=== PATIENT | male | born 1940 | race Caucasian/White ===

== ENCOUNTER 2019-05-29 01:04 | Inpatient (IN) | payer OTHER ==
[~2019-05-29] VITALS: Ht 172.7 cm; Wt 53.5 kg
[2019-05-29] MEDS ORDERED: MAGNESIUM HYDROXIDE 30 ML UDC PO PRN (02:00)
[2019-05-29] MEDS ORDERED: ACETAMINOPHEN 325 MG TABLET PO PRN (02:00)
[2019-05-29] MEDS ORDERED: MAG HYDROX/AL HYDROX/SIMETH 30 ML UDC PO PRN (02:00)
[2019-05-29] MEDS ORDERED: DOCU-141 PO (02:25)
[2019-05-29] MEDS ORDERED: ALBU8.5H8 INH (02:25)
[2019-05-29] MEDS ORDERED: ASPI-605 PO (02:25)
[2019-05-29] MEDS ORDERED: CHOL100044 PO (02:25)
[2019-05-29] MEDS ORDERED: DONE10TA44 PO (02:25)
[2019-05-29] MEDS ORDERED: MEMA10TA PO (02:25)
[2019-05-29] MEDS ORDERED: BUDE10.2 INH (02:25)
[2019-05-29] MEDS ORDERED: INSU100V10 SQ (02:45)
--- NOTE | 2019-05-29 05:57 | NUR ---
PAGED DNP XIN YANEZ, RE: MED RECON, HE SAID, " CHECK IN AM WITH AN MD."
[2019-05-29] MEDS: BLOOD SUGAR DIAGNOSTIC 1 EACH STRIP IN SCH ×4 (07:48→21:05)
[2019-05-29 08:00] VITALS: BP 152/85
[2019-05-29 10:26] LABS: CHOLESTEROL 132 mg/dL (<200); HDL CHOLESTEROL 50 mg/dL (40-60); LDL 75 mg/dL (0-99); TRIGLYCERIDES 66 mg/dL (30-150)
[2019-05-29] MEDS: FLUTICASONE/VILANTEROL 1 EACH BLST.W.DEV IH SCH (10:52)
[2019-05-29 16:00] VITALS: BP 147/58
--- NOTE | 2019-05-29 19:39 | NUR ---
PATIENT AT THE BEDSIDE, CALM, QUIET, FEELING DEPRESSED. NO APPARENT DISTRESS NOTED.
[2019-05-29 19:45] VITALS: BP 145/76
[2019-05-29] MEDS: INSULIN GLARGINE, 100 UNIT/ML CARTRIDGE SQ SCH (21:08)
[2019-05-29] MEDS: MIRTAZAPINE 15 MG TABLET PO SCH (22:27)
[2019-05-30 06:22] LABS: BASOPHILS # (AUTO) 0.1 /CMM (0.0-0.2); BASOPHILS % (AUTO) 0.8 % (0.0-2.0); EOSINOPHILS % (AUTO) 1.9 % (0.0-6.0); HEMATOCRIT 43 % (39-51); HEMOGLOBIN 14.4 g/dL (13.5-17.5); LYMPHOCYTES # (AUTO) 2.5 /CMM (0.8-4.8); LYMPHOCYTES % (AUTO) 37.7 % (20.0-44.0); MEAN CORPUSCULAR HGB CONC 34 g/dl (31.0-36.0); MEAN CORPUSCULAR VOLUME 100 fL (80-96); MONOCYTES # (AUTO) 0.7 /CMM (0.1-1.30); NEUTROPHILS # (AUTO) 3.3 /CMM (1.8-8.9); NEUTROPHILS % (AUTO) 49.6 % (43.0-81.0); PLATELET COUNT (AUTO) 184 /CMM (150-450); RED BLOOD CELL COUNT(AUTO) 4.28 MIL/uL (4.5-6.0); WHITE BLOOD COUNT (AUTO) 6.7 K/uL (4.3-11.0)
[2019-05-30 06:45] LABS: ALANINE AMINOTRANSFERASE 21 U/L (12-78); ALBUMIN 2.9 g/dL (3.4-5.0); ALKALINE PHOSPHATASE 92 U/L (46-116); ASPARTATE AMINOTRANSFERASE 21 U/L (15-37); BILIRUBIN,TOTAL 0.6 mg/dL (0.2-1.0); CALCIUM, SERUM 8.4 mg/dL (8.5-10.1); CARBON DIOXIDE 30 mmol/L (21-32); CHLORIDE 107 mmol/L (98-107); CREATININE 1.4 mg/dL (0.6-1.3); GLUCOSE 80 mg/dL (74-106); POTASSIUM 3.4 mmol/L (3.5-5.1); SODIUM SERUM 144 mmol/L (136-145); TOTAL PROTEIN, SERUM 5.9 g/dL (6.4-8.2); UREA NITROGEN, BLOOD 11 mg/dL (7-18)
[2019-05-30 06:46] LABS: THYROID STIMULATING HORMONE 3.063 uIU/mL (0.358-3.74)
[2019-05-30 06:47] LABS: CHOLESTEROL 119 mg/dL (<200); HDL CHOLESTEROL 48 mg/dL (40-60); LDL 64 mg/dL (0-99); TRIGLYCERIDES 58 mg/dL (30-150)
[2019-05-30] MEDS: BLOOD SUGAR DIAGNOSTIC 1 EACH STRIP IN SCH ×4 (07:49→21:52)
--- NOTE | 2019-05-30 07:54 | NUR ---
RN NOTE: 0730 BS 74 MG/DL; NO COVERAGE NEEDED.
[2019-05-30 08:00] VITALS: BP 155/80
[2019-05-30] MEDS: ASPIRIN EC 81 MG TABLET.DR PO SCH (08:42)
[2019-05-30] MEDS: CHOLECALCIFEROL 1,000 UNIT TABLET (VIT D3) PO SCH (08:42)
[2019-05-30] MEDS: DOCUSATE SODIUM 100 MG CAPSULE PO SCH (08:42)
[2019-05-30] MEDS ORDERED: POTASSIUM CHLORIDE 20 MEQ TAB.PRT.SR PO ONE (09:30)
[2019-05-30 16:26] VITALS: BP 125/64
[2019-05-30 20:16] VITALS: BP 161/76
[2019-05-30] MEDS: MIRTAZAPINE 15 MG TABLET PO SCH (21:34)
[2019-05-30] MEDS: INSULIN GLARGINE, 100 UNIT/ML CARTRIDGE SQ SCH (22:00)
--- NOTE | 2019-05-30 22:34 | NUR ---
gps rn notes: patient in the room, accucheck 68mg/dl- no insulin given at this time. provided patient with snacks and juice. lantus 5 units not given, patient las low blood sugar. will monitor patient.
[2019-05-31 00:45] VITALS: BP 150/82
[2019-05-31 07:39] LABS: CALCIUM, SERUM 8.9 mg/dL (8.5-10.1); CARBON DIOXIDE 29 mmol/L (21-32); CHLORIDE 107 mmol/L (98-107); CREATININE 1.4 mg/dL (0.6-1.3); GLUCOSE 86 mg/dL (74-106); POTASSIUM 3.8 mmol/L (3.5-5.1); SODIUM SERUM 142 mmol/L (136-145); UREA NITROGEN, BLOOD 14 mg/dL (7-18)
[2019-05-31 08:00] VITALS: BP 161/81
[2019-05-31] MEDS: ASPIRIN EC 81 MG TABLET.DR PO SCH (08:25)
[2019-05-31] MEDS: BLOOD SUGAR DIAGNOSTIC 1 EACH STRIP IN SCH ×4 (08:25→21:33)
[2019-05-31] MEDS: CHOLECALCIFEROL 1,000 UNIT TABLET (VIT D3) PO SCH (08:25)
[2019-05-31] MEDS: DOCUSATE SODIUM 100 MG CAPSULE PO SCH (08:25)
--- NOTE | 2019-05-31 08:43 | NUR ---
RN NOTE: PATIENT'S 0730 BLOOD SUGAR 65 MG/DL; NO COVERAGE GIVE. NO SYMPTOMS NOTED FOR HYPOGLYCEMIA. ORANGE JUICE GIVEN PRIOR TO BREAKFAST.
--- NOTE | 2019-05-31 09:22 | NUR ---
UR NOTE: KEMAL received a call from [facility] Lab Intern Татьяна [phone] Auth# [id number] who requested a clinical update on pt. KEMAL informed her that per service coordinator pt has been approved 4 days and was admitted on 05/29/19. Татьяна stated that in her records it showed that pt was admitted on 05/28/19 and that is why she was calling for an update. KEMAL provided Татьяна with a clinical review. Татьяна requested a mental status exam and also requested pts medications be increased for additional days approved. KEMAL informed her that she would be contacting psychiatrist to inquire about treatment plan and will return her call.
[2019-05-31] MEDS: FLUTICASONE/VILANTEROL 1 EACH BLST.W.DEV IH SCH (09:52)
--- NOTE | 2019-05-31 10:00 | NUR ---
RN NOTE: URINE COLLECTED FOR UA
[2019-05-31 11:54] LABS: CREATININE, URINE 122.4 MG/DL (30.0-125.0)
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
--- NOTE | 2019-05-31 13:02 | NUR ---
RN NOTE: 0730 BS 65 MG/DL. 4 OZ OJ GIVEN WITH BREAKFAST. 1130 BS 61 MG/DL. 8 OZ OJ, APPLE SAUCE WITH 2 PACKETS OF SUGAR WAS GIVEN BEFORE LUNCH. 1230 BS 104 MG/DL. DRYWALL STRIPPER HELPER WAS INFORMED OF PATIENT'S BS LEVELS AND WILL START GLUCERNA FOR THE PATIENT FOR BREAKFAST, LUNCH AND DINNER.
[2019-05-31] MEDS: ALBUTEROL FS 2.5 MG/3 ML VIAL.NEB NEB PRN (13:05)
--- NOTE | 2019-05-31 13:25 | NUR ---
UR NOTE: KEMAL contacted N Kinesiotherapist Татьяна [phone] Auth# [id number] and left voicemail informing her Dr. Abraham will reevaluate pt today and increase Remeron. KEMAL stated that she would call tomorrow once psychiatrist has made medication adjustments. KEMAL has requested for additional days at pt is currently stating he is feeling suicidal and is depressed.
[2019-05-31 13:27] LABS: APPEARANCE,URINE Slightly Cloudy (CLEAR); BILIRUBIN,URINE Negative (NEGATIVE); BLOOD, URINE Trace-intact Ery/uL (NEGATIVE); COLOR,URINE Yellow (YELLOW); KETONES,URINE Negative (NEGATIVE); LEUKOCYTE ESTERASE ,URINE Negative (NEGATIVE); NITRITE, URINE Negative (NEGATIVE); PROTEIN,URINE Negative (NEGATIVE); UGLUCOSE Negative (NEGATIVE); UROBILINOGEN,URINE 0.2 EU/dL (0.2)
[2019-05-31 13:37] LABS: BACTERIA,URINE None seen /HPF (None Seen); SQUAMOUS EPITHELIAL CELL,UR Few /HPF (None Seen); WBC,URINE 0-3 /HPF (0-3)
--- NOTE | 2019-05-31 14:40 | NUR ---
SW contacted pts son Osito [phone] and left voicemail for callback.
[2019-05-31 16:00] VITALS: BP 113/60
--- NOTE | 2019-05-31 16:00 | NUR ---
INITIAL DISCHARGE PLAN: Per pt he states he and his daughter are homeless and that he currently lives in the hospital and does not have a home. Pt states he has a monthly income is $4/5 thousand dollars. KEMAL attempted to contact pts son Osito [phone] and left a voicemail for callback. KEMAL will collaborate with and plan for a safe and proper discharge.
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
[2019-05-31] MEDS: LORAZEPAM 0.5 MG TABLET PO PRN (17:19)
[2019-05-31] MEDS: GLUCERNA SHAKE 237 ML CAN PO SCH (17:39)
--- NOTE | 2019-05-31 18:38 | NUR ---
RN NOTE: PATIENT HAS VERBALIZED INTERMITTENT SI WITH NO SPECIFIC PLAN. CN INFORMED. ATIVAN 1MG PO PRN GIVEN. WILL CONTINUE TO MONITOR Q15 MINUTES FOR SAFETY AND BEHAVIOR.
[2019-05-31 20:00] VITALS: BP 131/70
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
[2019-05-31] MEDS: MIRTAZAPINE 15 MG TABLET PO SCH (21:32)
[2019-05-31] MEDS: INSULIN GLARGINE, 100 UNIT/ML CARTRIDGE SQ SCH (21:34)
[2019-06-01] MEDS: TEMAZEPAM 7.5 MG CAPSULE PO PRN (00:47)
[2019-06-01] MEDS: BLOOD SUGAR DIAGNOSTIC 1 EACH STRIP IN SCH ×4 (07:48→21:15)
[2019-06-01 08:00] VITALS: BP 137/82
[2019-06-01] MEDS: GLUCERNA SHAKE 237 ML CAN PO SCH ×3 (08:29→17:15)
[2019-06-01] MEDS: CHOLECALCIFEROL 1,000 UNIT TABLET (VIT D3) PO SCH (08:29)
[2019-06-01] MEDS: FLUTICASONE/VILANTEROL 1 EACH BLST.W.DEV IH SCH (08:29)
[2019-06-01] MEDS: DOCUSATE SODIUM 100 MG CAPSULE PO SCH (08:29)
[2019-06-01] MEDS: ASPIRIN EC 81 MG TABLET.DR PO SCH (08:29)
--- NOTE | 2019-06-01 12:07 | NUR ---
UR NOTE: KEMAL contacted N Crop Grain Or Livestock Farm Manager Татьяна [phone] Auth# [id number] and left clinical update via voicemail.
--- NOTE | 2019-06-01 12:09 | NUR ---
SW contacted pts daughter Ryann [phone] to discuss discharge plan and left a voicemail for callback.
--- NOTE | 2019-06-01 13:02 | NUR ---
UR NOTE: KEMAL received a call from [facility] Assembly Line Worker Татьяна [phone] requesting peer to peer review with Psychiatrist Dr. Abraham. KEMAL contacted [facility] [phone] Abraham and left a voicemail scheduling the peer to peer review for Friday06/02/19 at 2:00pm. Per Татьяна, pt has been authorized today 06/01/19.
--- NOTE | 2019-06-01 13:12 | NUR ---
KEMAL contacted Anni-pts daughter in law (Osito's ) [phone] and left a voicemail requesting call back from pts daughter Ryann to discuss pts discharge plan.
--- NOTE | 2019-06-01 13:31 | NUR ---
SW received a call from pts daughter Ryann [phone]/ [phone] confirming pt has a home to return to. Per Ryann she stated pt lives in [address] [address] and is able to return but was unable to provide SW with the phone number of the home. Per daughter she stated that up until 3 days ago she was homeless and has not means of transporting pt back to his home. Ryann asked SW to arrange transportation with pts daughter in law Anni.
--- NOTE | 2019-06-01 15:49 | NUR ---
GROUP NOTE: SW attempted to engage pt in group therapy on this present day discussing poor life choices and how they have affected pts life. However, pt refused to participate saying he was def.
[2019-06-01 16:00] VITALS: BP 142/67
--- NOTE | 2019-06-01 19:24 | NUR ---
GPS RN NOTE, RECEIVED PATIENT AWAKE AND IN BED, NO S/S OR COMPLAINTS OF PAIN AT THIS TIME. PATIENT IS DISPLAYING NO S/S OF APPARENT DISTRESS AT THIS TIME. PATIENT BREATHING IS UNLABORED WITH EQUAL RISE AND FALL OF THE CHEST. PATIENT IS ALERT AND ORIENTED X 1 ON ROOM AIR WITH A SPO2 OF 95 %. PATIENT IS MED COMPLAINT, DISORGANIZED, ANXIOUS, COOPERATIVE, DEPRESSED, AND NEEDS REORIENTATION. PATIENT DENIES SUICIDE AND HOMICIDAL IDEATIONS AT THIS TIME. PATIENT ASSISTED WITH TURNING AND REPOSITIONING Q2HR AND PRN FOR COMFORT AND CIRCULATION. PATIENT HAS NO NEEDS AT THIS TIME. PATIENT EDUCATED ON THE USE OF THE CALL [place]. PATIENT BED SIDE RAILS ARE UP X 2 FOR SAFETY, BED IS LOCKED, AND LOW WILL CONTINUE TO MONITOR AND MAINTAIN SAFETY.
[2019-06-01 20:09] VITALS: BP 134/86
--- NOTE | 2019-06-01 21:15 | NUR ---
GPS RN NOTE, PERFORMED ACCU CHECK ON PATIENT WITH A BLOOD SUGAR RESULT OF 89. 2 UNITS OF LANTUS GIVE SQ RIGHT ARM. WILL CONTINUE TO MONITOR THIS PATIENT.
[2019-06-01] MEDS: risperiDONE 1 MG TABLET PO SCH (21:37)
[2019-06-01] MEDS: INSULIN GLARGINE, 100 UNIT/ML CARTRIDGE SQ SCH (21:37)
[2019-06-01] MEDS: MIRTAZAPINE 15 MG TABLET PO SCH (21:37)
[2019-06-02] MEDS ORDERED: Z GUARD REMEDY 2 OZ OINT TP PRN (06:30)
[2019-06-02 08:00] VITALS: BP 126/52
[2019-06-02] MEDS: DOCUSATE SODIUM 100 MG CAPSULE PO SCH (08:23)
[2019-06-02] MEDS: ASPIRIN EC 81 MG TABLET.DR PO SCH (08:23)
[2019-06-02] MEDS: BLOOD SUGAR DIAGNOSTIC 1 EACH STRIP IN SCH ×4 (08:23→21:22)
[2019-06-02] MEDS: CHOLECALCIFEROL 1,000 UNIT TABLET (VIT D3) PO SCH (08:24)
[2019-06-02] MEDS: risperiDONE 1 MG TABLET PO SCH ×2 (08:26→21:23)
[2019-06-02] MEDS: FLUTICASONE/VILANTEROL 1 EACH BLST.W.DEV IH SCH (08:28)
[2019-06-02] MEDS: RIVASTIGMINE TARTRATE 1.5 MG CAPSULE PO SCH ×2 (08:28→16:30)
[2019-06-02] MEDS: GLUCERNA SHAKE 237 ML CAN PO SCH ×3 (08:28→18:40)
[2019-06-02] MEDS: ALBUTEROL FS 2.5 MG/3 ML VIAL.NEB NEB PRN (12:57)
--- NOTE | 2019-06-02 15:29 | NUR ---
GROUP NOTE: SW attempted to engage pt in group therapy on this present day discussing discharge planning. However, pt is unable to participate as pt has been increasingly been acting bizarre and is now more confused and disorganized.
--- NOTE | 2019-06-02 15:49 | NUR ---
SW received a call from psychiatrist Dr. Abraham stating that [facility] has authorized 2 days and recommending pt be discharged to a board and care that is able to accommodate pts needs.
--- NOTE | 2019-06-02 15:52 | NUR ---
KEMAL contacted Ellyn daughter in law (Osito's ) [phone] and left a voicemail requesting call back
--- NOTE | 2019-06-02 15:52 | NUR ---
SW contacted pts daughter Ryann [phone] to discuss discharge plan and left a voicemail for callback.
--- NOTE | 2019-06-02 15:57 | NUR ---
KEMAL faxed pts face sheet to [facility] [employer] [facility] [employer] [facility] for placement .
[2019-06-02 16:00] VITALS: BP 110/56
[2019-06-02 20:24] VITALS: BP 131/66
[2019-06-02] MEDS: MIRTAZAPINE 15 MG TABLET PO SCH (21:22)
[2019-06-02] MEDS: INSULIN GLARGINE, 100 UNIT/ML CARTRIDGE SQ SCH (21:29)
[2019-06-02] MEDS ORDERED: POTASSIUM CHLORIDE 20 MEQ TAB.PRT.SR PO ONE (22:12)
[2019-06-03 07:29] LABS: CALCIUM, SERUM 9.2 mg/dL (8.5-10.1); CARBON DIOXIDE 26 mmol/L (21-32); CHLORIDE 108 mmol/L (98-107); CREATININE 1.2 mg/dL (0.6-1.3); GLUCOSE 86 mg/dL (74-106); MAGNESIUM 2.3 mg/dL (1.8-2.4); PHOSPHORUS 3.5 mg/dL (2.5-4.9); POTASSIUM 4.2 mmol/L (3.5-5.1); SODIUM SERUM 141 mmol/L (136-145); UREA NITROGEN, BLOOD 23 mg/dL (7-18)
[2019-06-03 07:40] LABS: BASOPHILS # (AUTO) 0.1 /CMM (0.0-0.2); BASOPHILS % (AUTO) 0.8 % (0.0-2.0); EOSINOPHILS % (AUTO) 3.4 % (0.0-6.0); HEMATOCRIT 39 % (39-51); HEMOGLOBIN 13.1 g/dL (13.5-17.5); LYMPHOCYTES # (AUTO) 1.9 /CMM (0.8-4.8); LYMPHOCYTES % (AUTO) 27.9 % (20.0-44.0); MEAN CORPUSCULAR HGB CONC 33 g/dl (31.0-36.0); MEAN CORPUSCULAR VOLUME 102 fL (80-96); MONOCYTES # (AUTO) 0.7 /CMM (0.1-1.30); MONOCYTES % (AUTO) 9.7 % (2.0-12.0); NEUTROPHILS % (AUTO) 58.2 % (43.0-81.0); PLATELET COUNT (AUTO) 160 /CMM (150-450); RED BLOOD CELL COUNT(AUTO) 3.82 MIL/uL (4.5-6.0); WHITE BLOOD COUNT (AUTO) 6.9 K/uL (4.3-11.0)
[2019-06-03 08:00] VITALS: BP 123/51
[2019-06-03] MEDS: GLUCERNA SHAKE 237 ML CAN PO SCH ×3 (08:00→17:16)
--- NOTE | 2019-06-03 08:20 | NUR ---
SW received a voicemail from pts daughter Ryann [phone] stating that pt makes $2100/month but also stated that pts money for this month is all gone as she had to pay for expenses and rent.
[2019-06-03] MEDS: CHOLECALCIFEROL 1,000 UNIT TABLET (VIT D3) PO SCH (08:27)
[2019-06-03] MEDS: RIVASTIGMINE TARTRATE 1.5 MG CAPSULE PO SCH ×2 (08:27→17:15)
[2019-06-03] MEDS: DOCUSATE SODIUM 100 MG CAPSULE PO SCH (08:27)
[2019-06-03] MEDS: risperiDONE 1 MG TABLET PO SCH ×2 (08:27→21:12)
[2019-06-03] MEDS: ASPIRIN EC 81 MG TABLET.DR PO SCH (08:27)
--- NOTE | 2019-06-03 08:27 | NUR ---
SW contacted pts daughter Ryann [phone] to discuss discharge plan and left a voicemail for callback.
[2019-06-03] MEDS: FLUTICASONE/VILANTEROL 1 EACH BLST.W.DEV IH SCH (08:28)
[2019-06-03] MEDS: BLOOD SUGAR DIAGNOSTIC 1 EACH STRIP IN SCH ×4 (08:28→21:40)
--- NOTE | 2019-06-03 08:29 | NUR ---
UR NOTE: SW received a voicemail from [facility] Grapple Operator Татьяна [phone] stating pt has been approved 3 additional days with a review due on Friday06/04/19.
--- NOTE | 2019-06-03 08:30 | NUR ---
UR NOTE: SW contacted N Lockmaker Татьяна [phone] Auth# [id number] and left voicemail informing her pt needs a higher level of care and requested assistance with placement.
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
--- NOTE | 2019-06-03 10:11 | NUR ---
KEMAL received a call from Anni-pts daughter in law (Osito's ) [phone] who stated that she and pts son Osito are willing to provide the first month rent for a board and care. Anni stated that she did not know how Ryann was managing pts finances but stated that it is best if pt is placed elsewhere. KEMAL informed her that pt will be evaluated today by a placement agency to find adequate placement for pt. Anni agreed with plan.
--- NOTE | 2019-06-03 10:31 | NUR ---
KEMAL contacted [facility], [employer] [phone] and informed her pts son an daughter in law will be assisting with paying first month rent. KEMAL also provided Ander with daughter in law Anni's contact information. Ander stated that someone will be coming on this present day to assess pt.
--- NOTE | 2019-06-03 15:48 | NUR ---
Group Note: SW attempted to engage pt in group therapy but pt is unable to participate as pt has been increasingly been acting bizarre and is now more confused and disorganized.
[2019-06-03 16:00] VITALS: BP 105/55
[2019-06-03 20:11] VITALS: BP 114/52
[2019-06-03] MEDS: LORAZEPAM 0.5 MG TABLET PO PRN (21:12)
[2019-06-03] MEDS: MIRTAZAPINE 15 MG TABLET PO SCH (21:40)
[2019-06-03] MEDS: TEMAZEPAM 7.5 MG CAPSULE PO PRN (21:40)
[2019-06-03] MEDS: INSULIN GLARGINE, 100 UNIT/ML CARTRIDGE SQ SCH (21:41)
[2019-06-04] MEDS: BLOOD SUGAR DIAGNOSTIC 1 EACH STRIP IN SCH ×4 (07:37→21:36)
[2019-06-04 08:00] VITALS: BP 114/63
[2019-06-04] MEDS: GLUCERNA SHAKE 237 ML CAN PO SCH ×3 (08:41→16:36)
[2019-06-04] MEDS: ASPIRIN EC 81 MG TABLET.DR PO SCH (08:41)
[2019-06-04] MEDS: RIVASTIGMINE TARTRATE 1.5 MG CAPSULE PO SCH ×2 (08:41→16:36)
[2019-06-04] MEDS: CHOLECALCIFEROL 1,000 UNIT TABLET (VIT D3) PO SCH (08:41)
--- NOTE | 2019-06-04 08:41 | NUR ---
UR NOTE: KEMAL contacted [facility] Piping Drafter Татьяна [phone] Auth# [id number] and left a clinical review via voicemail.
[2019-06-04] MEDS: risperiDONE 1 MG TABLET PO SCH ×2 (08:42→20:43)
[2019-06-04] MEDS: DOCUSATE SODIUM 100 MG CAPSULE PO SCH (08:43)
[2019-06-04] MEDS: FLUTICASONE/VILANTEROL 1 EACH BLST.W.DEV IH SCH (08:44)
--- NOTE | 2019-06-04 11:39 | NUR ---
SS Group Goal: Patient will attend group being held today from 10am -10:30 in the activities room and participate and/or actively listen to peers and be respectful. Intervention: SW facilitated group session with patients regarding their support system. Response: Patient was sleeping and did not attend group session. Plan: Patient will be invited to attend next high school social studies tutor group session held.
[2019-06-04 16:00] VITALS: BP 132/68
[2019-06-04] MEDS ORDERED: TEMAZEPAM 7.5 MG CAPSULE PO PRN (19:00)
[2019-06-04 20:00] VITALS: BP 119/64
--- NOTE | 2019-06-04 21:15 | NUR ---
FOUND SKIN TEAR ON LEFT FOREARM CLEANSE WITH SALINE PAT DRY AND COVER IT WITH KERLIX. WOUND CONSULT TRIGGERED. WILL CONTINUE TO MONITOR.
[2019-06-04] MEDS: INSULIN GLARGINE, 100 UNIT/ML CARTRIDGE SQ SCH (21:37)
[2019-06-04] MEDS: MIRTAZAPINE 15 MG TABLET PO SCH (21:37)
[2019-06-04] MEDS: ALBUTEROL FS 2.5 MG/3 ML VIAL.NEB NEB PRN (22:56)
[2019-06-05] MEDS: ALBUTEROL FS 2.5 MG/3 ML VIAL.NEB NEB PRN (05:11)
[2019-06-05] MEDS: BLOOD SUGAR DIAGNOSTIC 1 EACH STRIP IN SCH ×4 (07:54→21:42)
[2019-06-05 08:00] VITALS: BP 124/62
[2019-06-05] MEDS: GLUCERNA SHAKE 237 ML CAN PO SCH ×3 (08:00→16:53)
[2019-06-05] MEDS: risperiDONE 1 MG TABLET PO SCH ×3 (08:30→20:27)
[2019-06-05] MEDS: DOCUSATE SODIUM 100 MG CAPSULE PO SCH (09:00)
[2019-06-05] MEDS: RIVASTIGMINE TARTRATE 1.5 MG CAPSULE PO SCH ×2 (09:00→16:53)
[2019-06-05 11:30] VITALS: BP 96/50
--- NOTE | 2019-06-05 11:30 | NUR ---
RN Notes Found patient bathroom, sitting in the floor. Per patient refused fall. Patient state he set in the floor because of diaper removed and have a bowel movement and can not help self. Assist patient taking shower by help of POULTRY BONER's. Skin checked intact. Patient has edema bilateral lower foots, v/s taken BP- 96/50, p-112, O2-93% room air. Lungs are clear during auscultation. Patient has a denture and not feting well. administered some fluids, bs-106mg/dl. continued monitoring.
[2019-06-05] MEDS: ASPIRIN EC 81 MG TABLET.DR PO SCH (13:11)
[2019-06-05] MEDS: CHOLECALCIFEROL 1,000 UNIT TABLET (VIT D3) PO SCH (13:11)
[2019-06-05] MEDS: FLUTICASONE/VILANTEROL 1 EACH BLST.W.DEV IH SCH (13:12)
[2019-06-05 13:30] VITALS: BP 90/50
[2019-06-05 14:47] VITALS: BP 110/60
--- NOTE | 2019-06-05 14:48 | NUR ---
rn notes patient sitting in the jessica chair in dining room, v/s taken bp -110/60, p-90 full. patient stable, refused pain. Assist turn and reposition q 30 min. safety precaution maintained all the time.
[2019-06-05 16:07] VITALS: BP 110/60
[2019-06-05 20:00] VITALS: BP 129/61
[2019-06-05] MEDS: MIRTAZAPINE 15 MG TABLET PO SCH (21:42)
[2019-06-05] MEDS: INSULIN GLARGINE, 100 UNIT/ML CARTRIDGE SQ SCH (21:44)
--- NOTE | 2019-06-06 06:23 | NUR ---
INFORMED RT FOR BREATHING/SUCTION TREATMENT. WILL SEND SOMEBODY AFTER THEY GIVE REPORT. WILL ENDORSE TO NEXT SHIFT NURSE FOR FOLLOW UP.
[2019-06-06] MEDS: BLOOD SUGAR DIAGNOSTIC 1 EACH STRIP IN SCH ×4 (07:48→21:11)
[2019-06-06] MEDS: GLUCERNA SHAKE 237 ML CAN PO SCH ×3 (07:54→16:40)
[2019-06-06 08:00] VITALS: BP 102/50
[2019-06-06] MEDS: risperiDONE 1 MG TABLET PO SCH ×2 (08:30→20:30)
[2019-06-06] MEDS: CHOLECALCIFEROL 1,000 UNIT TABLET (VIT D3) PO SCH (08:53)
[2019-06-06] MEDS: DOCUSATE SODIUM 100 MG CAPSULE PO SCH (08:53)
[2019-06-06] MEDS: RIVASTIGMINE TARTRATE 1.5 MG CAPSULE PO SCH ×2 (08:53→16:40)
[2019-06-06] MEDS: ASPIRIN EC 81 MG TABLET.DR PO SCH (08:53)
[2019-06-06] MEDS: FLUTICASONE/VILANTEROL 1 EACH BLST.W.DEV IH SCH (08:54)
[2019-06-06 16:00] VITALS: BP 122/60
[2019-06-06] MEDS ORDERED: IPRATROPIUM NEB FS 0.5 MG/2.5 ML AMPUL.NEB NEB PRN (18:00)
[2019-06-06] MEDS: GUAIFENESIN LA 600 MG TABLET.SA PO SCH (18:34)
[2019-06-06] MEDS: ALBUTEROL FS 2.5 MG/3 ML VIAL.NEB NEB PRN (20:02)
[2019-06-06 20:05] VITALS: BP 139/77
[2019-06-06] MEDS: MIRTAZAPINE 15 MG TABLET PO SCH (21:11)
[2019-06-06] MEDS: INSULIN GLARGINE, 100 UNIT/ML CARTRIDGE SQ SCH (21:12)
[2019-06-07 08:00] VITALS: BP 123/58
--- NOTE | 2019-06-07 08:00 | NUR ---
UR NOTE: SW received a voicemail from [facility] Corporate Attorney Татьяна [phone] stating pt was authorized through the weekend with a clinical review due today Friday06/07/19.
[2019-06-07] MEDS: BLOOD SUGAR DIAGNOSTIC 1 EACH STRIP IN SCH ×4 (08:34→21:11)
[2019-06-07] MEDS: GLUCERNA SHAKE 237 ML CAN PO SCH ×3 (08:45→17:16)
--- NOTE | 2019-06-07 08:57 | NUR ---
KEMAL received a voicemail from [facility] Commercial Credit Officer Татьяна [phone] stating pt was authorized through the weekend with a clinical review due today Friday06/07/19. Addendum: 06/07/19 at 0901 by DOUG SOMMER ERROR NOTE
--- NOTE | 2019-06-07 09:01 | NUR ---
UR NOTE: KEMAL contacted [facility] Registered Nurse Ambulatory Татьяна [phone] Auth# [id number] and left a clinical review via voicemail.
[2019-06-07] MEDS: CHOLECALCIFEROL 1,000 UNIT TABLET (VIT D3) PO SCH (09:34)
[2019-06-07] MEDS: DOCUSATE SODIUM 100 MG CAPSULE PO SCH (09:34)
[2019-06-07] MEDS: RIVASTIGMINE TARTRATE 1.5 MG CAPSULE PO SCH ×2 (09:35→17:16)
[2019-06-07] MEDS: GUAIFENESIN LA 600 MG TABLET.SA PO SCH ×2 (09:35→21:11)
[2019-06-07] MEDS: risperiDONE 1 MG TABLET PO SCH ×2 (09:35→21:11)
[2019-06-07] MEDS: ASPIRIN EC 81 MG TABLET.DR PO SCH (09:36)
[2019-06-07] MEDS: FLUTICASONE/VILANTEROL 1 EACH BLST.W.DEV IH SCH (09:37)
--- NOTE | 2019-06-07 11:38 | NUR ---
UR NOTE: KEMAL contacted Octaviano at [facility] [phone] and left a voicemail requesting assistance with SNF placement.
--- NOTE | 2019-06-07 12:50 | NUR ---
UR NOTE: KEMAL received a call from Octaviano at [facility] [phone] stating that he will be contacting the SNF team to inform them of pts SNF needs and will have someone form the team call KEMAL.
--- NOTE | 2019-06-07 15:17 | NUR ---
UR NOTE: SW received call from [place] marketing operations coordinator with [employer], who requested clinical information to be faxed to [phone] for evaluation of needs for possible SNF placement.
--- NOTE | 2019-06-07 15:19 | NUR ---
KEMAL received a call from [facility], [facility] Education Specialist [phone] informed KEMAL that she was unable to find placement for pt as board and cares believe pt is a high rosk and needs a higher level of care.
[2019-06-07 16:00] VITALS: BP 112/69
[2019-06-07 19:40] VITALS: BP 135/63
[2019-06-07] MEDS: INSULIN GLARGINE, 100 UNIT/ML CARTRIDGE SQ SCH (21:18)
[2019-06-07] MEDS: MIRTAZAPINE 15 MG TABLET PO SCH (22:13)
[2019-06-08 08:00] VITALS: BP 145/80
[2019-06-08] MEDS: GLUCERNA SHAKE 237 ML CAN PO SCH ×3 (08:00→18:26)
--- NOTE | 2019-06-08 08:28 | NUR ---
UR NOTE: KEMAL contacted [facility] Sales Coach Татьяна [phone] Auth# [id number] and left a clinical review via voicemail.
[2019-06-08] MEDS: risperiDONE 1 MG TABLET PO SCH ×2 (08:30→19:58)
--- NOTE | 2019-06-08 08:35 | NUR ---
UR NOTE: KEMAL contacted Svetlana clinical administrative coordinator with [facility], who requested updated clinical information to be faxed to [phone]. KEMAL also informed her that psychiatrist has placed DC order for Friday06/09/19. KEMAL asked for an update on approval for SNF. Svetlana stated that she needed to make sure that [facility] was not responsible for SNF placement and that as soon as she confirmed that she would ask her treatment team to begin working on placement for pt. KEMAL informed her that she did not have much time as [facility] may not continue covering for pts continued hospitalization.
--- NOTE | 2019-06-08 08:39 | NUR ---
KEMAL contacted Anni-pts daughter in law (Osito's ) [phone] and left a voicemail informing her that psychiatrist is discharging pt on Friday06/09/19 and also informed her that SW is currently attempting to have SNF authorized through pts medical group but that it was not promising. KEMAL also informed her that if pts medical group does not authorize SNF placement that she will have to pick him up and take him back to where he was living before coming to the hospital. KEMAL requested a callback.
[2019-06-08] MEDS: BLOOD SUGAR DIAGNOSTIC 1 EACH STRIP IN SCH ×4 (08:49→22:07)
[2019-06-08] MEDS: CHOLECALCIFEROL 1,000 UNIT TABLET (VIT D3) PO SCH (09:00)
[2019-06-08] MEDS: RIVASTIGMINE TARTRATE 1.5 MG CAPSULE PO SCH ×2 (09:00→18:21)
[2019-06-08] MEDS: GUAIFENESIN LA 600 MG TABLET.SA PO SCH ×2 (09:00→21:18)
--- NOTE | 2019-06-08 09:00 | NUR ---
ON ROUNDS EARLIER FIND PT. TO BE VERY GROGGY AND AROUSABLE TO TOUCH.VS STABLE. MONITORING FREQ. FOR STABILITY.WD RN IN TO EVAL. PT. HEELS OFF LOADED TO TAKE PHOTOS OF HEELS .MEDS HELD DUE TO DROWSINESS.DIET TO BE CHANGED TO PUREED DUE TO CONGESTION.
--- NOTE | 2019-06-08 09:15 | NUR ---
[employer] AUTO BODY SERVICE MECHANIC CALLED TO INFORM OF STATUS AND REQUEST ORDERS-WILL ENTER ORDERS.NPO FOR WHILE DUE TO GROGGINESS.BGL STABLE.
--- NOTE | 2019-06-08 09:29 | NUR ---
WOUND CARE CONSULT: PT PRESENTS VERY THIN AND BONY WITH SKIN TEAR TO LEFT ARM, BRUISING/DISCOLORATION TO RT HEEL AND DRY ABRASION TO RT GREAT TOE. PT NOTED TO BE KICKING HIS FEET AND LEGS AT TIMES. RECOMMENDATIONS MADE FOR SKIN PROTECTION. DISCUSSED WITH NURSING STAFF. WILL SEE PRN. PT NOTED TO BE COUGHING. IN AGREEMENT WITH PLAN OF CARE. Addendum: 06/08/19 at 0931 by TOMÁS URIARTE WNDNU Amended: Links added.
--- NOTE | 2019-06-08 09:40 | NUR ---
AWAKE FOR FEW MINUTES THEN ASLEEP AGAIN.
--- NOTE | 2019-06-08 10:23 | NUR ---
UR NOTE: KEMAL received a call from [facility] Scientific Research Manager Татьяна [phone] who stated she is requesting a peer to peer KEMAL informed her that pt is discharging tomorrow and also informed her that [facility] is currently working on getting SNF authorization. KEMAL also informed her that if [facility] does not obtain authorization for SNF placement that pt will have to return back to the independent living home he came from.
[2019-06-08] MEDS: DOCUSATE SODIUM 100 MG CAPSULE PO SCH (11:12)
[2019-06-08] MEDS: ASPIRIN EC 81 MG TABLET.DR PO SCH (11:12)
[2019-06-08 11:58] LABS: BASOPHILS # (AUTO) 0.1 /CMM (0.0-0.2); EOSINOPHILS % (AUTO) 2.7 % (0.0-6.0); HEMATOCRIT 42 % (39-51); LYMPHOCYTES # (AUTO) 1.8 /CMM (0.8-4.8); LYMPHOCYTES % (AUTO) 24.4 % (20.0-44.0); MEAN CORPUSCULAR HGB CONC 34 g/dl (31.0-36.0); MEAN CORPUSCULAR VOLUME 102 fL (80-96); MONOCYTES # (AUTO) 0.8 /CMM (0.1-1.30); MONOCYTES % (AUTO) 11.2 % (2.0-12.0); NEUTROPHILS # (AUTO) 4.5 /CMM (1.8-8.9); NEUTROPHILS % (AUTO) 60.7 % (43.0-81.0); PLATELET COUNT (AUTO) 212 /CMM (150-450); RED BLOOD CELL COUNT(AUTO) 4.11 MIL/uL (4.5-6.0); WHITE BLOOD COUNT (AUTO) 7.3 K/uL (4.3-11.0)
--- NOTE | 2019-06-08 12:00 | NUR ---
KEMAL received a call from Alex [phone] dry house tender at [address] [address] who stated board and care has accepted pt. SW inform him that pt will be discharged tomorrow. KEMAL also provided him with the information needed to collect pt belongings along with credit card and check book.
[2019-06-08 12:04] LABS: CALCIUM, SERUM 9.5 mg/dL (8.5-10.1); CARBON DIOXIDE 28 mmol/L (21-32); CHLORIDE 106 mmol/L (98-107); CREATININE 1.3 mg/dL (0.6-1.3); GLUCOSE 91 mg/dL (74-106); POTASSIUM 4.4 mmol/L (3.5-5.1); SODIUM SERUM 141 mmol/L (136-145); UREA NITROGEN, BLOOD 23 mg/dL (7-18)
[2019-06-08 12:09] LABS: MAGNESIUM 2.2 mg/dL (1.8-2.4); PHOSPHORUS 3.3 mg/dL (2.5-4.9)
--- NOTE | 2019-06-08 13:31 | NUR ---
KEMAL received a call from [place], environmental control administrator at [facility] [address] [place] [address] who stated pt is not able to return as he needs a higher level of care. KEMAL explained that she has not been able to speak to pts daughter Ryann who global manager pts money for SW to place pt elsewhere. [place] informed KEMAL that Ryann currently lives at the same location and provided her with contact info of home where she can be reached [phone].
--- NOTE | 2019-06-08 13:33 | NUR ---
KEMAL contacted pts daughter Ryann [phone] and spoke with her about pts current placement issues. Ryann was upset and began yelling saying that she did not care what happened to pt and that she wanted nothing to do with him. KEMAL asked Ryann to leave pts credit cared and check book at the home with Fet the house admin so the board and care can collect his belongings. Ryann agreed and stated she would leave all of pts money and belongings at Homes.
[2019-06-08 16:00] VITALS: BP 112/53
--- NOTE | 2019-06-08 16:00 | NUR ---
CHEST X-RAY DONE SEEN BY Madelyn MON NP.
[2019-06-08] MEDS: FLUTICASONE/VILANTEROL 1 EACH BLST.W.DEV IH SCH (16:52)
--- NOTE | 2019-06-08 18:00 | NUR ---
AFTERNOON MEDS GIVEN,WIDE AWAKE NOW.IN URI CHAIR.
[2019-06-08 20:09] VITALS: BP 119/57
[2019-06-08] MEDS: INSULIN GLARGINE, 100 UNIT/ML CARTRIDGE SQ SCH (21:46)
[2019-06-08 22:00] VITALS: BP 115/62
[2019-06-08] MEDS: MIRTAZAPINE 15 MG TABLET PO SCH (22:08)
[2019-06-09 06:41] LABS: BASOPHILS # (AUTO) 0.2 /CMM (0.0-0.2); BASOPHILS % (AUTO) 2.6 % (0.0-2.0); EOSINOPHILS % (AUTO) 4.5 % (0.0-6.0); HEMATOCRIT 36 % (39-51); HEMOGLOBIN 12.3 g/dL (13.5-17.5); LYMPHOCYTES % (AUTO) 33.3 % (20.0-44.0); MEAN CORPUSCULAR HGB CONC 34 g/dl (31.0-36.0); MEAN CORPUSCULAR VOLUME 100 fL (80-96); MONOCYTES # (AUTO) 0.7 /CMM (0.1-1.30); MONOCYTES % (AUTO) 11.7 % (2.0-12.0); NEUTROPHILS # (AUTO) 2.8 /CMM (1.8-8.9); NEUTROPHILS % (AUTO) 47.9 % (43.0-81.0); PLATELET COUNT (AUTO) 190 /CMM (150-450); RED BLOOD CELL COUNT(AUTO) 3.57 MIL/uL (4.5-6.0); WHITE BLOOD COUNT (AUTO) 5.9 K/uL (4.3-11.0)
[2019-06-09 07:02] LABS: CARBON DIOXIDE 26 mmol/L (21-32); CHLORIDE 107 mmol/L (98-107); CREATININE 1.3 mg/dL (0.6-1.3); GLUCOSE 87 mg/dL (74-106); POTASSIUM 4.1 mmol/L (3.5-5.1); SODIUM SERUM 141 mmol/L (136-145); UREA NITROGEN, BLOOD 23 mg/dL (7-18)
[2019-06-09] MEDS: BLOOD SUGAR DIAGNOSTIC 1 EACH STRIP IN SCH (07:54)
[2019-06-09 08:00] VITALS: BP 101/68
[2019-06-09] MEDS: GLUCERNA SHAKE 237 ML CAN PO SCH (08:32)
[2019-06-09] MEDS: FLUTICASONE/VILANTEROL 1 EACH BLST.W.DEV IH SCH (08:35)
--- NOTE | 2019-06-09 08:49 | NUR ---
blood sugar this am 67-pt. mee-had to get pt. up to awaken-blood sugar rechecked and now 94.
[2019-06-09] MEDS: DOCUSATE SODIUM 100 MG CAPSULE PO SCH (09:00)
--- NOTE | 2019-06-09 09:00 | NUR ---
RN-CO: Dr. Abraham ordered to discontinue hold and discharge the patient today. Patient remains calm and cooperative to care. Denied suicidal and homicidal ideation. Denied auditory and visual hallucination. Indira Holden HAND EDGER medically cleared patient for discharge.
[2019-06-09] MEDS: risperiDONE 1 MG TABLET PO SCH (09:11)
[2019-06-09] MEDS: ASPIRIN EC 81 MG TABLET.DR PO SCH (09:12)
[2019-06-09] MEDS: RIVASTIGMINE TARTRATE 1.5 MG CAPSULE PO SCH (09:12)
[2019-06-09] MEDS: CHOLECALCIFEROL 1,000 UNIT TABLET (VIT D3) PO SCH (09:12)
[2019-06-09] MEDS: GUAIFENESIN LA 600 MG TABLET.SA PO SCH (09:15)
--- NOTE | 2019-06-09 09:45 | NUR ---
refused discharge photos.dressing change to lt. forearm.pt. with scant amt. serous drainage.
--- NOTE | 2019-06-09 10:00 | NUR ---
seen and examined by joanna moe np and dr. quach and instructed on rxs by rn.noted some understanding.
--- NOTE | 2019-06-09 10:20 | NUR ---
drivers here,given paper work.pt. put in wheel chair transferred via [facility].has all prescriptions with him with dc papers.denies suicidal,homicidal,auditory,visual hallucinations.
--- NOTE | 2019-06-09 10:23 | NUR ---
DISCHARGE NOTE: Pt will be discharged at 10:00am via [facility] (already scheduled) to [facility] [address] [address] [address]. Pts daughter Ryann [phone] has been notified. Pts mood is euthymic and confused with congruent affect. Pt denied denied suicidal/homicidal ideation and denied visual/auditory hallucinations. Pt will follow up with [facility] Address: [address] [place] [address] and faxed clinical information to F: [phone] and pt will present on Tuesday June 11, 2019. Pt was also given a referral to [facility] Address: [address] [place] [address] . The multidisciplinary exitcare form was done, printed, signed, and given to the patient.
--- NOTE | 2019-06-10 09:46 | NUR ---
UR NOTE: KEMAL faxed discharge clinicals to Hermilo case finisher from [place] P:[phone] F: [phone].
== END 2019-06-09 10:20 | disposition home or self-care (01) | DRG 881 ==
LOC: GPS 01:04
PROVIDERS: ADMIT Psychiatry & Neurology Psychiatry; ATTEND Internal Medicine
DX: F32.9 Major depressive disorder, single episode, unspecified (principal); N18.9 Chronic kidney disease, unspecified; F23 Brief psychotic disorder; R45.851 Suicidal ideations; F02.80 Dementia in other diseases classified elsewhere, unspecified severity, without behavioral disturbance, psychotic disturbance, mood disturbance, and anxiety; G30.9 Alzheimer's disease, unspecified; I25.10 Atherosclerotic heart disease of native coronary artery without angina pectoris; I25.5 Ischemic cardiomyopathy; E78.5 Hyperlipidemia, unspecified; N40.0 Benign prostatic hyperplasia without lower urinary tract symptoms; Z88.0 Allergy status to penicillin; F41.9 Anxiety disorder, unspecified; I12.9 Hypertensive chronic kidney disease with stage 1 through stage 4 chronic kidney disease, or unspecified chronic kidney disease; E87.6 Hypokalemia; F43.10 Post-traumatic stress disorder, unspecified; H91.90 Unspecified hearing loss, unspecified ear; Z91.81 History of falling; E11.22 Type 2 diabetes mellitus with diabetic chronic kidney disease
CPT/HCPCS: 36415; 71045-TC; 80048-TC; 80053-TC; 80061-TC; 81000-TC; 82570-TC; 82962-TC; 83735-TC; 84100-TC; 84300-TC; 84443-TC; 85025-TC; 87081-TC; J1815

== ENCOUNTER 2019-06-10 20:04 | Emergency (ER) | payer OTHER, MEDICAID ==
[~2019-06-10] VITALS: Ht 172.7 cm; Wt 59.0 kg
[~2019-06-10 20:04] MED LIST: ALBU8.5H8 INH; ASPI-605 PO; BUDE10.2 INH; CHOL100044 PO; DOCU-141 PO; DONE10TA44 PO; INSU100V10 SQ; MEMA10TA PO
[2019-06-10] MEDS ORDERED: risperiDONE 1 MG TABLET PO ONE (21:00)
[2019-06-10] MEDS ORDERED: RIVASTIGMINE TARTRATE 1.5 MG CAPSULE PO SCH (21:00)
[2019-06-10] MEDS ORDERED: MIRTAZAPINE 15 MG TABLET PO ONE (21:00)
[2019-06-10] MEDS ORDERED: MIRTAZAPINE 15 MG TABLET ONE (21:41)
[2019-06-10] MEDS ORDERED: risperiDONE 0.25 MG TABLET PO ONE (21:42)
[2019-06-10] MEDS ORDERED: DONEPEZIL 5 MG TABLET ONE (22:21)
[2019-06-10] MEDS ORDERED: MEMANTINE HCL 5 MG TABLET ONE (22:21)
[2019-06-10] MEDS ORDERED: RIVASTIGMINE TARTRATE 1.5 MG CAPSULE ONE (22:23)
[2019-06-10] MEDS ORDERED: MEMANTINE HCL 5 MG TABLET PO SCH (22:30)
[2019-06-10] MEDS ORDERED: DONEPEZIL 5 MG TABLET PO SCH (22:30)
--- NOTE | 2019-06-10 22:40 | NUR ---
PT MEDICATED ORDERED.
[2019-06-11] MEDS ORDERED: LORAZEPAM 1 MG TABLET ONE (00:54)
--- NOTE | 2019-06-11 01:02 | NUR ---
PATIENT RESTLESS. CONTINUES TO GET OUT OF BED AND WANDERING ER. PT MEDICATED ORDERED.
[2019-06-11] MEDS ORDERED: LORAZEPAM 1 MG TABLET PO ONE (01:30)
--- NOTE | 2019-06-11 02:23 | NUR ---
PT SLEEPING IN [facility]. NO SIGNS OF DISTRESS NOTED. WILL CONT TO MONITOR
--- NOTE | 2019-06-11 05:44 | NUR ---
PT SLEEPING IN [facility]. NO SIGNS OF DISTRESS NOTED. WILL CONT TO MONITOR PT.
[2019-06-11 06:41] VITALS: BP 145/65
--- NOTE | 2019-06-11 07:57 | NUR ---
patient in bed, no distress noted. sitter at bedside.
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
--- NOTE | 2019-06-11 09:00 | NUR ---
NANCY AGUAYO, WORKING ON PLACEMENT.
--- NOTE | 2019-06-11 11:00 | NUR ---
PATIENT ASSISTED TO RESTROOM. ABLE TO AMBULATE WITH ASSIST.
--- NOTE | 2019-06-11 11:46 | NUR ---
CALLED FOR FOOD TRAY
--- NOTE | 2019-06-11 13:33 | NUR ---
KEMAL was unable to find placement for the pt. Per Social contact and service clerks supervisor pt. to be assessed by crisis team and sent to [facility]. KEMAL informed Bre in intake with aforementioned information.
--- NOTE | 2019-06-11 14:07 | NUR ---
CALLED FOR [facility] TRAN[facility]ORT, ETA [phone], [phone]
[2019-06-11 14:14] LABS: BASOPHILS % (AUTO) 0.5 % (0.0-2.0); EOSINOPHILS % (AUTO) 3.8 % (0.0-6.0); HEMATOCRIT 40 % (39-51); HEMOGLOBIN 13.9 g/dL (13.5-17.5); LYMPHOCYTES # (AUTO) 1.6 /CMM (0.8-4.8); LYMPHOCYTES % (AUTO) 25.6 % (20.0-44.0); MEAN CORPUSCULAR HGB CONC 35 g/dl (31.0-36.0); MEAN CORPUSCULAR VOLUME 101 fL (80-96); MONOCYTES # (AUTO) 0.5 /CMM (0.1-1.30); MONOCYTES % (AUTO) 8.7 % (2.0-12.0); NEUTROPHILS # (AUTO) 3.8 /CMM (1.8-8.9); NEUTROPHILS % (AUTO) 61.4 % (43.0-81.0); PLATELET COUNT (AUTO) 235 /CMM (150-450); RED BLOOD CELL COUNT(AUTO) 3.95 MIL/uL (4.5-6.0); WHITE BLOOD COUNT (AUTO) 6.2 K/uL (4.3-11.0)
[2019-06-11 14:21] LABS: CALCIUM, SERUM 9.3 mg/dL (8.5-10.1); CARBON DIOXIDE 29 mmol/L (21-32); CHLORIDE 109 mmol/L (98-107); CREATININE 1.4 mg/dL (0.6-1.3); GLUCOSE 127 mg/dL (74-106); POTASSIUM 4.6 mmol/L (3.5-5.1); SODIUM SERUM 144 mmol/L (136-145); UREA NITROGEN, BLOOD 20 mg/dL (7-18)
[2019-06-11 14:35] LABS: ACETAMINOPHEN 0 ug/ml (10-30); ALANINE AMINOTRANSFERASE 18 U/L (12-78); ALBUMIN 2.8 g/dL (3.4-5.0); ALCOHOL, BLOOD < 3 mg/dL (0-0); ALKALINE PHOSPHATASE 75 U/L (46-116); ASPARTATE AMINOTRANSFERASE 20 U/L (15-37); BILIRUBIN,DIRECT 0.2 mg/dL (0.0-0.2); BILIRUBIN,TOTAL 0.5 mg/dL (0.2-1.0); SALICYLATE 0.7 mg/dL (2.8-20.0); TOTAL PROTEIN, SERUM 6.4 g/dL (6.4-8.2)
[2019-06-11 14:45] LABS: APPEARANCE,URINE Clear (CLEAR); BILIRUBIN,URINE SMALL (NEGATIVE); BLOOD, URINE Negative Ery/uL (NEGATIVE); COLOR,URINE Yellow (YELLOW); KETONES,URINE Trace (NEGATIVE); LEUKOCYTE ESTERASE ,URINE Negative (NEGATIVE); NITRITE, URINE Negative (NEGATIVE); PROTEIN,URINE Negative (NEGATIVE); UGLUCOSE Negative (NEGATIVE)
[2019-06-11 14:47] LABS: BACTERIA,URINE Rare /HPF (None Seen); RBC,URINE 0-2 /HPF (0-2); SQUAMOUS EPITHELIAL CELL,UR Rare /HPF (None Seen); WBC,URINE 0-2 /HPF (0-3); YEAST,URINE Rare /HPF (None Seen)
--- NOTE | 2019-06-11 15:22 | NUR ---
REPORT GIVEN TO EMT. PATIENT IN STABLE CONDITION, VITALS STABLE. Patient discharged to [facility] in stable condition. Written and verbal after care instructions given. Patient verbalizes understanding of instruction. Addendum: 06/11/19 at 1647 by [facility] CANCELL[facility], AUTHORIZATION STILL NEEDED PRIOR TO TRANSFER.
--- NOTE | 2019-06-11 19:23 | NUR ---
CALL FROM [facility], AUTHORIZATION# [id number]
--- NOTE | 2019-06-11 19:37 | NUR ---
REPORT GIVEN TO IRVING WALLER- [facility] FOR CONTINUATION OF CARE.
--- NOTE | 2019-06-11 20:11 | NUR ---
[facility] AT BEDSIDE FOR TRANSPORT TO [facility].
== END 2019-06-11 21:23 ==
LOC: ER 20:08
DX: F03.90 Unspecified dementia, unspecified severity, without behavioral disturbance, psychotic disturbance, mood disturbance, and anxiety (principal); E11.9 Type 2 diabetes mellitus without complications; J44.9 Chronic obstructive pulmonary disease, unspecified; R45.1 Restlessness and agitation; I25.10 Atherosclerotic heart disease of native coronary artery without angina pectoris; I10 Essential (primary) hypertension; E78.5 Hyperlipidemia, unspecified; F29 Unspecified psychosis not due to a substance or known physiological condition; Z79.4 Long term (current) use of insulin; Z79.82 Long term (current) use of aspirin
CPT/HCPCS: 36415; 80048; 80076; 80305; 80307; 80329; 81001; 82962; 85025; 99285; G0480; 81000-TC